=== PATIENT | male | born 1975 ===

== ENCOUNTER 2023-04-22 20:34 | Emergency (ER) | payer SELFPAY ==
[2023-04-22] MEDS: Acetaminophen 325 MG Tab PO ONE (22:33)
[2023-04-22] MEDS: Diphtheria,Pertussis(Acell),Tetanus Vaccine 0.5 ML Syringe IM ONE (22:35)
== END 2023-04-22 22:40 | disposition home or self-care (01) ==
LOC: JD.ED 20:34
DX: S62.326A Displaced fracture of shaft of fifth metacarpal bone, right hand, initial encounter for closed fracture (principal); Z23 Encounter for immunization; W00.0XXA Fall on same level due to ice and snow, initial encounter
CPT/HCPCS: 29125; 73130; 90471; 90715; 99283; A9270